=== PATIENT | male | born 1985 | race Native Hawaiian/Other Pacific Islander ===

== ENCOUNTER 2020-12-25 21:30 | Emergency (ER) | payer OTHER ==
[~2020-12-25] VITALS: Ht 175.3 cm; Wt 129.3 kg
[2020-12-25 21:47] VITALS: TEMP 97.1
[2020-12-25 22:37] LABS: PLATELET COUNT 222 K/uL (142-355)
[2020-12-25 22:42] LABS: POTASSIUM 4.1 mmol/L (3.6-5.2); SODIUM 142 mmol/L (136-145)
[2020-12-25 22:57] LABS: PARTIAL THROMBOPLASTIN TIME 24.3 SECONDS (24.5-33.6)
[2020-12-25 23:20] VITALS: BP 107/72
== END 2020-12-25 23:23 | disposition home or self-care (01) ==
LOC: ED 21:30
PROVIDERS: Emergency Medicine
DX: U07.1 COVID-19 (principal); J12.82 Pneumonia due to coronavirus disease 2019
CPT/HCPCS: 36415; 80048; 84484; 85027; 85379; 85610; 85730; 93005; 99283

== ENCOUNTER 2021-09-12 10:48 | Outpatient (CLI) | payer OTHER ==
[2021-09-12 12:24] LABS: PLATELET COUNT 218 K/uL (142-355)
[2021-09-12 12:37] LABS: POTASSIUM 4.2 mmol/L (3.6-5.2)
== END 2021-09-12 18:47 | disposition home or self-care (01) ==
LOC: LABW 10:48
PROVIDERS: ATTEND Nurse Practitioner Family
DX: Z00.00 Encounter for general adult medical examination without abnormal findings (principal)
CPT/HCPCS: 36415; 80053; 80061; 81000; 82043; 82570; 83036; 83735; 84443; 85027

== ENCOUNTER 2022-09-14 11:37 | Outpatient (CLI) | payer OTHER ==
[2022-09-14 12:21] LABS: PLATELET COUNT 238 K/uL (142-355)
== END 2022-09-14 19:07 | disposition home or self-care (01) ==
LOC: RAD 11:37
PROVIDERS: ATTEND Nurse Practitioner Family
DX: N20.0 Calculus of kidney (principal); M25.572 Pain in left ankle and joints of left foot; R73.03 Prediabetes; E78.49 Other hyperlipidemia; E55.9 Vitamin D deficiency, unspecified; E53.8 Deficiency of other specified B group vitamins; Z13.29 Encounter for screening for other suspected endocrine disorder; I10 Essential (primary) hypertension
CPT/HCPCS: 36415; 80053; 80061; 82306; 82607; 83036; 84439; 84443; 84481; 84550; 85027; 86376